=== PATIENT | female | born 1965 | race Caucasian/White ===

== ENCOUNTER 2021-11-06 09:20 | Emergency (ER) | payer MEDICARE, MEDICAID ==
[~2021-11-06] VITALS: Ht 162.6 cm; Wt 89.0 kg
[2021-11-06] MEDS ORDERED: IBUPROFEN 600MG TABLET PO STA (10:35)
[2021-11-06 10:52] LABS: BASOPHILS % 1.1 % (0.0-2.0); EOSINOPHILS % 1.1 % (0.0-5.0); HEMATOCRIT. 42.5 % (36.0-48.0); HEMOGLOBIN. 13.8 g/dL (12.0-16.0); LYMPHOCYTES % 25.8 % (20.0-50.0); MEAN CORPUSCULAR HEMOGLOBIN 30.4 pg (28.0-32.0); MEAN CORPUSCULAR VOLUME 93.8 fL (81.0-99.0); MEAN PLATELET VOLUME 7.5 fl (7.4-10.4); MONOCYTES % 12.2 % (2.0-8.0); NEUTROPHILS % 59.8 % (40.0-76.0); PLATELET 552 x1000/uL (130-400); RED BLOOD CELL COUNT 4.53 mill/uL (4.2-5.4)
[2021-11-06 10:54] LABS: CHLORIDE 106 mEq/L (98-107)
[2021-11-06] MEDS ORDERED: IBUP-2028 MT (13:00)
[2021-11-06] MEDS ORDERED: SULF1TAB48 MT (13:00)
[2021-11-06 13:54] VITALS: BP 132/77
== END 2021-11-06 13:24 | disposition home or self-care (01) ==
LOC: ER 09:20
DX: U07.1 COVID-19 (principal); J32.9 Chronic sinusitis, unspecified; E78.00 Pure hypercholesterolemia, unspecified; I10 Essential (primary) hypertension; Z90.710 Acquired absence of both cervix and uterus; Z98.890 Other specified postprocedural states
CPT/HCPCS: 36415; 71045; 80053; 84484; 85025; 87426; 87804; 93005; 99285; C9803

== ENCOUNTER 2022-03-21 10:47 | Emergency (ER) | payer MEDICARE, MEDICAID ==
[~2022-03-21] VITALS: Ht 167.6 cm; Wt 80.0 kg
[~2022-03-21 10:47] MED LIST: IBUP-2028 MT; SULF1TAB48 MT
[2022-03-21] MEDS ORDERED: GUAI600T26 MT (13:59)
[2022-03-21 14:21] VITALS: BP 138/75
== END 2022-03-21 14:22 | disposition home or self-care (01) ==
LOC: ER 13:44
DX: J06.9 Acute upper respiratory infection, unspecified (principal); E78.00 Pure hypercholesterolemia, unspecified; I10 Essential (primary) hypertension; Z98.890 Other specified postprocedural states; Z90.81 Acquired absence of spleen; Z90.710 Acquired absence of both cervix and uterus
CPT/HCPCS: 71045; 99283